=== PATIENT | female | born 1990 | race Caucasian/White ===

== ENCOUNTER 2021-08-31 15:12 | Emergency (ER) | payer OTHER ==
[2021-08-31 15:40] LABS: HEMOGLOBIN 11.5 gm/dl (12.3-15.3); RED BLOOD COUNT 5.3 M/UL (4.00-5.10); WHITE BLOOD COUNT 11.5 K/UL (4.5-11.0)
[2021-08-31] MEDS ORDERED: LOPRESSOR 25 MG25 MG PO (17:42)
== END 2021-08-31 18:40 | disposition home or self-care (01) ==
LOC: ER1 15:12
PROVIDERS: Physician Assistant
DX: I47.1 Supraventricular tachycardia (principal); R06.02 Shortness of breath; R00.2 Palpitations
CPT/HCPCS: 71045; 80053; 82550; 82553; 84439; 84443; 84484; 84702; 85025; 85379; 93005; 99285; J0153

== ENCOUNTER 2021-11-29 12:00 | Inpatient (IN) | payer MEDICAID ==
[~2021-11-29] VITALS: Ht 162.6 cm; Wt 59.9 kg
[~2021-11-29 12:00] MED LIST: LOPRESSOR 25 MG25 MG PO
[2021-11-29 14:47] LABS: HEMOGLOBIN 7.7 gm/dl (12.3-15.3); RED BLOOD COUNT 3.53 M/UL (4.00-5.10); WHITE BLOOD COUNT 13.4 K/UL (4.5-11.0)
[2021-11-29 15:07] LABS: BUN/CREATININE RATIO 21 (0-10)
[2021-11-29] MEDS ORDERED: METOPROLOL TART25 MG PO (18:22)
[2021-11-29] MEDS ORDERED: CYMBALTA60 MG PO (18:23)
[2021-11-29] MEDS ORDERED: SENNOSIDES-DOC1 EACH PO (18:23)
[2021-11-29] MEDS ORDERED: SUMATRIPTAN SU100 MG PO (18:23)
[2021-11-29] MEDS ORDERED: ADDERALL 30 MG30 MG PO (18:24)
[2021-11-29] MEDS ORDERED: ZOFRAN ODT 4 MG4 MG PO (18:26)
[2021-11-30 04:53] LABS: BUN/CREATININE RATIO 14 (0-10)
[2021-11-30 05:38] LABS: RED BLOOD COUNT 3.11 M/UL (4.00-5.10); WHITE BLOOD COUNT 9.2 K/UL (4.5-11.0)
[2021-11-30 05:39] LABS: HEMOGLOBIN 6.7 gm/dl (12.3-15.3)
--- NOTE | 2021-11-30 15:21 | NUR ---
[facility] TRANFUSION STARTED AT 1023 AM. TRANFUSION STOPPED AT 1130 DUE TO PT CHILLING AND VOMITING. MD MADE AWARE AND ORDERED TO GIVE HER A REST. TRANSFUSION STARTED BACK AT 1315 AND STOPPED AT 1409. TOTAL OF 240ML TRANSFUSED. MD AND LAB AWARE. 1 HOUR POST TRANFUSION PT IS SHOWING NO SIGNS OF TRANSFUSION REACTION. WCTM.
[2021-12-01 03:29] LABS: HEMOGLOBIN 8.4 gm/dl (12.3-15.3)
[2021-12-01 03:43] LABS: RED BLOOD COUNT 3.84 M/UL (4.00-5.10); WHITE BLOOD COUNT 20.8 K/UL (4.5-11.0)
[2021-12-01 04:36] LABS: BUN/CREATININE RATIO 21 (0-10)
[2021-12-01 12:42] LABS: HEMOGLOBIN 8.2 gm/dl (12.3-15.3); RED BLOOD COUNT 3.69 M/UL (4.00-5.10); WHITE BLOOD COUNT 17.7 K/UL (4.5-11.0)
[2021-12-02 03:21] LABS: HEMOGLOBIN 7.8 gm/dl (12.3-15.3); RED BLOOD COUNT 3.59 M/UL (4.00-5.10); WHITE BLOOD COUNT 14.8 K/UL (4.5-11.0)
[2021-12-02 03:29] LABS: BUN/CREATININE RATIO 17 (0-10)
[2021-12-03 11:55] LABS: RED BLOOD COUNT 4.09 M/UL (4.00-5.10); WHITE BLOOD COUNT 16.4 K/UL (4.5-11.0)
[2021-12-03 12:13] LABS: BUN/CREATININE RATIO 16 (0-10)
[2021-12-03] MEDS ORDERED: METOPROLOL TART25 MG PO (19:25)
[2021-12-03] MEDS ORDERED: FERROUS GLUCON324 M1 PO (19:25)
[2021-12-04 04:01] LABS: HEMOGLOBIN 9.1 gm/dl (12.3-15.3); RED BLOOD COUNT 4.11 M/UL (4.00-5.10); WHITE BLOOD COUNT 14.2 K/UL (4.5-11.0)
[2021-12-04 04:08] LABS: BUN/CREATININE RATIO 21 (0-10)
[2021-12-05 10:17] LABS: HEMOGLOBIN 9.3 gm/dl (12.3-15.3); RED BLOOD COUNT 4.26 M/UL (4.00-5.10); WHITE BLOOD COUNT 14.2 K/UL (4.5-11.0)
[2021-12-05 10:42] LABS: BUN/CREATININE RATIO 26 (0-10)
[2021-12-05] MEDS ORDERED: LOPRESSOR 25 MG25 MG PO (15:08)
== END 2021-12-05 16:15 | disposition home or self-care (01) | DRG 871 ==
LOC: ER1 12:00 → M/S 17:20 → CDU 17:20 → M/S 20:40
PROVIDERS: Family Medicine; Internal Medicine; ADMIT Internal Medicine Infectious Disease
PROC: 3E03329 Introduction of Other Anti-infective into Peripheral Vein, Percutaneous Approach (ICD-10-PCS; principal; 2021-11-29)
PROC: 30233N1 Transfusion of Nonautologous Red Blood Cells into Peripheral Vein, Percutaneous Approach (ICD-10-PCS; 2021-11-30)
DX: A41.9 Sepsis, unspecified organism (principal); N15.1 Renal and perinephric abscess; I47.1 Supraventricular tachycardia; N12 Tubulo-interstitial nephritis, not specified as acute or chronic; G43.909 Migraine, unspecified, not intractable, without status migrainosus; Z20.822 Contact with and (suspected) exposure to COVID-19; E87.6 Hypokalemia; D50.9 Iron deficiency anemia, unspecified; Z98.890 Other specified postprocedural states; Z98.51 Tubal ligation status; Z82.49 Family history of ischemic heart disease and other diseases of the circulatory system; Z79.899 Other long term (current) drug therapy
CPT/HCPCS: 0240U; 36415; 80048; 80053; 81001; 82607; 82728; 82746; 83540; 83550; 83605; 83690; 83735; 84100; 84132; 84439; 84443; 84703; 85007; 85025; 85027; 86140; 86850; 86900; 86901; 86920; 87040; 87081; 87086; 87880; 93005; 96374; 96375; 99285; C9113; J0696; J1335; J1756; J2185; J2405; J3480; J7030; P9016; Q9967

== ENCOUNTER → 2021-12-06 | Outpatient (CLI) | payer MEDICAID ==
[~2021-12-06] VITALS: Ht 160 cm; Wt 59.0 kg
[~2021-12-06] MED LIST changes: +ADDERALL 30 MG30 MG PO; +CYMBALTA60 MG PO; +FERROUS GLUCON324 M1 PO; +METOPROLOL TART25 MG PO; +SENNOSIDES-DOC1 EACH PO; +SUMATRIPTAN SU100 MG PO; +ZOFRAN ODT 4 MG4 MG PO
== END ==
LOC: OPSV 07:00
DX: N15.1 Renal and perinephric abscess (principal)
CPT/HCPCS: 96365; J1335

== ENCOUNTER → 2021-12-07 | Outpatient (CLI) | payer MEDICAID | LOC: OPSV 07:00 | DX: N15.1 Renal and perinephric abscess (principal) | CPT/HCPCS: 96365; J1335 ==

== ENCOUNTER → 2021-12-11 | Outpatient (CLI) | payer MEDICAID ==
[~2021-12-11] VITALS: Ht 160 cm; Wt 59.0 kg
[2021-12-11 09:21] LABS: HEMOGLOBIN 8.7 gm/dl (12.3-15.3); RED BLOOD COUNT 3.87 M/UL (4.00-5.10); WHITE BLOOD COUNT 7.9 K/UL (4.5-11.0)
[2021-12-11 09:33] LABS: BUN/CREATININE RATIO 22 (0-10)
== END ==
LOC: OPSV 07:00
PROVIDERS: Internal Medicine
DX: A41.9 Sepsis, unspecified organism (principal); N15.1 Renal and perinephric abscess
CPT/HCPCS: 80053; 83735; 85025; 96365; J1335